=== PATIENT | female | born 1970 | race Caucasian/White ===

== ENCOUNTER → 2020-04-28 | Outpatient (CLI) | payer BC ==
[2014-12-03 22:06] VITALS: BP 192/91
--- NOTE | 2020-04-28 16:56 | KCIC ---
Examination: ABDOMEN COMPLETE History: Reason: Abnormal Liver Function; Diabetic Type II; Morbid Obesity / Spl. Instructions: / History: Comparison/Correlation: None Findings: Fatty infiltration of the liver is present. Liver length of 18.4 cm is evident. Common bile duct is unremarkable. The gallbladder is unremarkable. No biliary dilatation. Portal venous flow is normal. Right kidney measures 12 cm x 4.8 cm x 5.47. No right hydronephrosis. Left kidney measures 12.1 cm x 4.6 cm x 6.4 cm. No left hydronephrosis. Lobulated left renal contour is evident and nonspecific. Echotexture is normal involving the kidneys. Proximal pancreas is normal. Distal pancreas is obscured by bowel gas. Spleen is unremarkable measuring 11.2 cm longitudinal. Abdominal aorta is unremarkable. Inferior vena cava is unremarkable. No upper abdominal ascites. Impression: Fatty infiltration of the liver. Electronically signed by: Ronan Perera MD (04/28/2020 4:53 PM) [facility]
== END ==
LOC: KCIC US 15:17
PROVIDERS: ATTEND Internal Medicine
DX: K76.0 Fatty (change of) liver, not elsewhere classified (principal); R94.5 Abnormal results of liver function studies
CPT/HCPCS: 76700